=== PATIENT | female | born 1990 | race Caucasian/White ===

== ENCOUNTER 2017-03-08 10:46 | Emergency (ER) | payer OTHER ==
[~2017-03-08] VITALS: Ht 175.2 cm; Wt 102.1 kg
[~2017-03-08 10:46] MED LIST: AMOXICILLIN500 M2 PO; AMOXICILLIN500 MG PO; CEPHALEXIN500 M1 PO; CLEOCIN150 MG PO; HYDROCODONE BIT1 T11 PO; KETOROLAC10 MG PO; Motrin,Rufen800 MG PO; NAPROSYN500 MG PO; NKHM PO; PENICILLIN VK500 MG PO; Peridex 473 ML473 ML PO; ULTRAM50 MG PO
[2017-03-08 11:15] LABS: BASO % 0.2 % (0.0-1.0); EOS # 0.2 10*3/uL (0.0-0.4); EOS % 1.6 % (1.0-4.0); HEMATOCRIT 38.9 % (37.0-47.0); HEMOGLOBIN 13.6 g/dl (12.0-16.0); IG # 0.1 10*3/uL (0.0-0.1); LYMPH # 2.3 10*3/uL (1.3-4.4); LYMPH % 20.7 % (27.0-41.0); MEAN CELL VOLUME 85.1 fl (81.0-99.0); MEAN CORPUSCULAR HGB 29.8 pg (27.0-31.0); MEAN PLATELET VOLUME 9.6 fl (9.6-12.3); MONO % 9.1 % (3.0-9.0); NEUT # 7.5 10*3/uL (2.3-7.9); NEUT % 67.9 % (47.0-73.0); PLATELET COUNT AUTOMATED 358 10*3/uL (130-400); RED BLOOD COUNT 4.57 10*6/uL (4.10-5.10); RED CELL DISTRI WIDTH 12.2 % (0-14.5)
[2017-03-08 11:23] LABS: INTERNATIONAL NORM RATIO 0.9 (2.0-3.5)
[2017-03-08 11:31] LABS: ALKALINE PHOSPHATASE 122 U/L (45-117); BILIRUBIN, TOTAL 0.2 mg/dl (0.2-1.0); BUN 11 mg/dl (7-24); CARBON DIOXIDE 27 mmol/L (21-32); CHLORIDE 103 mmol/L (98-107); EST GLOM FILT AFRICAN AMERICAN > 60 ml/min; GLUCOSE 103 mg/dL (65-99); MAGNESIUM 2.1 mg/dL (1.5-2.1); POTASSIUM 3.7 mmol/L (3.5-5.1); SGOT/AST 23 IU/L (3-35); SGPT/ALT 44 U/L (12-78); SODIUM 139 mmol/L (136-145); TOTAL PROTEIN 7.7 gm/dL (6.4-8.2)
[2017-03-08 11:32] LABS: TROPONIN I < 0.015 ng/ml (<0.045)
== END 2017-03-08 13:01 | disposition home or self-care (01) ==
LOC: ED 10:46
PROVIDERS: Student in an Organized Health Care Education/Training Program
DX: R07.89 Other chest pain (principal); R11.0 Nausea; R20.2 Paresthesia of skin

== ENCOUNTER → 2020-11-11 | Outpatient (CLI) | payer OTHER | END | disposition home or self-care (01) | LOC: COVID19 12:58 | PROVIDERS: ATTEND Internal Medicine | DX: Z20.822 Contact with and (suspected) exposure to COVID-19 (principal) ==

== ENCOUNTER 2021-04-16 07:27 | Emergency (ER) | payer OTHER ==
[~2021-04-16] VITALS: Ht 304.8 cm
== END 2021-04-16 08:35 | disposition home or self-care (01) ==
LOC: ED 07:27
DX: T75.4XXA Electrocution, initial encounter (principal); W86.1XXA Exposure to industrial wiring, appliances and electrical machinery, initial encounter; Y93.89 Activity, other specified; Y92.89 Other specified places as the place of occurrence of the external cause; Y99.8 Other external cause status

== ENCOUNTER 2022-05-02 05:09 | Emergency (ER) | payer OTHER ==
[~2022-05-02] VITALS: Ht 177.8 cm; Wt 90.7 kg
[2022-05-02] MEDS ORDERED: PREDNISONE20 M1 PO (06:37)
[2022-05-02] MEDS ORDERED: BENADRYL25 M2 PO (06:37)
== END 2022-05-02 07:04 | disposition home or self-care (01) ==
LOC: ED 05:09
DX: L50.9 Urticaria, unspecified (principal); F17.200 Nicotine dependence, unspecified, uncomplicated